=== PATIENT | male | born 1965 | race Two or more races ===

== ENCOUNTER 2024-08-03 12:20 | Emergency (ER) | payer MEDICAID, SELFPAY ==
[2024-08-03 12:45] VITALS: BP 128/85; PULSE 76; RESP 18; TEMP 36.5; O2SAT 96; BMI 26.4
--- NOTE | 2024-08-03 12:45 | XR_ITS ---
Examination: Lumbar spine 3 views Technique one AP lateral coned lateral lower lumbar spine 3 views Exam date and time: July 06, 2024 1210 hours INDICATIONS: Lower back pain and tenderness beginning today. FINDINGS: Lumbar levoscoliosis 10 degrees No lumbar fracture Mild lumbar disc narrowing lower 4 lumbar levels IMPRESSION: Mild lumbar disc narrowing lower 4 lumbar levels
--- NOTE | 2024-08-03 12:49 | EDNOTE_ITS ---
ED Back Injury Pain RME/HPI General Chief Complaint: Back Pain/Injury Stated Complaint: SEVERE INTERMITTENT PAIN L) BACK DOWN L) LEG Time Seen by Provider: 08/03/24 12:30 Source: patient Arrival date/time: 08/03/24 12:20 58-year-old male with no known medical history presents to the emergency room with a chief complaint of lumbar back pain that radiates down his left leg x 1 day Mode of arrival: ambulatory Limitations: no limitations Related Data Allergies Allergy/AdvReac Type Severity Reaction Status Date / Time No Known Allergies Allergy Verified 08/03/24 12:24 Review of Systems Review of Systems Systems Reviewed: All systems reviewed, normal except as documented Constitutional Constitutional: Reports system reviewed and no additional complaints, except as documented, Denies fatigue, Denies fever(s), Denies headache(s) and Denies weakness Eyes Eyes: Reports system reviewed and no additional complaints, except as documented, Denies blurry vision and Denies change in vision ENT Ears, Nose, Mouth, and Throat: Reports system reviewed and no additional complaints, except as documented, Denies otalgia, Denies headache(s), Denies josh al congestion, Denies throat swelling and Denies vertigo Cardiovascular Cardiovascular: Reports system reviewed and no additional complaints, except as documented, Denies chest pain, Denies dyspnea and Denies dyspnea on exertion Respiratory Respiratory: Reports system reviewed and no additional complaints, except as documented, Denies chest congestion, Denies cough, Denies dyspnea, Denies dyspnea on exertion and Denies wheezing Gastrointestinal Gastrointestinal: Reports system reviewed and no additional complaints, except as documented, Denies abdominal pain, Denies cramping, Denies nausea and Denies vomiting Genitourinary Genitourinary: Reports system reviewed and no additional complaints, except as documented, Denies dysuria and Denies hematuria Musculoskeletal Musculoskeletal: Reports system reviewed and no additional complaints, except as documented, Reports arthralgias, Reports back pain and Reports radiating pain into limb Integumentary/Breasts Skin/Breast: Reports system reviewed and no additional complaints, except as documented and Denies wounds Neurologic Neurologic: Reports system reviewed and no additional complaints, except as documented, Denies confusion, Denies headache(s), Denies lack of coordination, Denies vertigo and Denies weakness Psychiatric Psychiatric: Reports system reviewed and no additional complaints, except as documented, Denies anxiety, Denies confusion, Denies depression, Denies paranoia, Denies suicidal ideation and Denies tactile hallucinations Endocrine Endocrine: Reports system reviewed and no additional complaints, except as documented and Denies fatigue Hematologic/Lymphatic Hematologic/Lymphatic: Reports system reviewed and no additional complaints, except as documented and Denies lymphadenopathy Allergic/Immunologic Allergic/Immunologic: Reports system reviewed and no additional complaints, except as documented, Denies throat swelling, Denies urticaria and Denies wheezing ED Exam General Limitations: Present no limitations General appearance: Present alert and in no apparent distress Head Head exam: Present atraumatic Eye Eye exam: Present normal appearance, PERRL and EOMI ENT ENT exam: Present normal exam, normal oropharynx and mucous membranes moist Neck Neck exam: Present normal inspection, full ROM and trachea midline Chest Chest inspection: Present normal inspection and symmetric chest wall rise Respiratory Respiratory exam: Present normal lung sounds bilaterally Cardiovascular Cardiovascular exam: Present regular rate, normal rhythm and normal heart sounds Abdominal Exam Abdominal exam: Present soft and normal bowel sounds Extremities Exam Extremities exam: Present normal inspection and full ROM Back Exam Back exam: Present normal inspection, full ROM, CVA tenderness (L) and vertebral tenderness Neurological Exam Neurological exam: Present alert, oriented X3 and CN II-XII intact Psychiatric Psychiatric exam: Present normal affect and normal mood Skin Skin exam: Present warm, dry, intact and normal color Course Quality Measures none Orders Category Date Time Status XR lumbar spine 2-3V Stat Exams 08/03/24 12:45 Completed Ketorolac Inj [Toradol Inj] Med 08/03/24 12:45 Discontinued 30 mg IM X1 ONE Vital Signs Vital signs: Vital Signs Temperature 97.7 F 08/03/24 12:45 Pulse Rate 76 08/03/24 12:45 Respiratory Rate 18 08/03/24 12:45 Blood Pressure 128/85 H 08/03/24 12:45 Pulse Oximetry (%) 96 08/03/24 12:45 Oxygen Delivery Method Room Air 08/03/24 12:45 O2 saturation 96% within normal limits Back Pain / Injury MDM Narrative MDM Narrative:: 58-year-old male with no known medical history presents to the emergency room with a chief complaint of lumbar back pain that radiates down his left leg x 1 day Patient is hemodynamically stable and in no apparent distress Physical examination shows tenderness and pain with palpation of the lower lumbar spine. The patient also has left-sided sciatic notch tenderness. X-ray of the lumbar spine was completed and shows some mild lumbar disc narrowing in the lower 4 lumbar levels. Patient was given medication with improvement to his symptoms Patient was educated to follow-up with his primary care provider and return to the emergency room for any evidence of worsening signs or symptoms Patient data External records reviewed:: [facility] previous records Clinical information provided by:: patient Social determinants that could affect healthcare access:: none Patient has the following chronic illnesses:: No chronic illness How is presenting disease/condition affected by chronic disease/condition?: no chronic disease Evaluation data The following diagnostics were reviewed and interpreted by me:: lab results and radiology exam(s) Lab and/or radiology exams considered but not ordered:: Labs and radiology exams considered and ordered Interpretation Summary: Lumbar [id number]: Lumbar levoscoliosis 10 degrees No lumbar fracture Mild lumbar disc narrowing lower 4 lumbar levels IMPRESSION: Mild lumbar disc narrowing lower 4 lumbar levels Medications / Prescriptions Medications or Prescriptions considered but not ordered:: Medication given Medication administrations:: Medication Administration History Discontinued Medications Ketorolac Tromethamine (Ketorolac Inj 60 Mg/2 Ml Vial) 30 mg IM X1 ONE Stop: 08/03/24 12:46 Last Admin: 08/03/24 13:41 Dose: 30 mg Documented By: KF Medication given Consultations Consultation(s) initiated? (list below): No Diagnosis Differential diagnosis back pain/injury: lumbar radiculopathy, sciatica, strain of lumbar region and discitis Most likely diagnosis given after review of the tests above:: Strain of lumbar region Admission Indicated Admission indicated?: not indicated Admission Request Was there a request for admission?: No Disposition Plan Disposition Plan: Discharge Discharge Attestation Discharge Attestation: The patient and all family members were given an opportunity to ask questions and understood the discharge instructions. Discharge instructions specifically effects, indications for sooner follow up or return to the emergency department, and the expected course of current diagnosis. Patient condition: Stable Discharge Plan Plan Patient Disposition: HOME (Self Care) Disposition Comment: Stable Prescriptions/Referrals Referrals: Geovanna Lee PA-C [Primary Care Provider] - In 1 week Problem List Clinical Impression: Lumbar disc narrowing, Sciatica Patient/Caregiver Discharge Instructions Education Materials: ED Degenerative Disk Disease, ED Sciatica Additional Instructions: Please follow-up with your primary care provider in the next 24 to 48 hours. For any evidence of worsening signs or symptoms follow-up with your primary care provider as a referral to a biomedical specialist may be indicated. For any evidence of worsening signs or symptoms return to the emergency room immediately Print Language: Wolof Stand Alone Forms: Katherine Award Info., Patient Portal Info Letter PA/[employer] MANAGER Supervising Physician PA/SARINA Supervising Physician: Dr. Nevarez
[2024-08-03] MEDS: KETOROLAC INJ 60 MG/2 ML VIAL 30 MG IM (13:41)
== END 2024-08-03 14:58 | disposition home or self-care (01) ==
PROVIDERS: Emergency Provider Emergency Medicine; PCP Physician Assistant
DX: M48.061 Spinal stenosis, lumbar region without neurogenic claudication (principal); M54.42 Lumbago with sciatica, left side
CPT/HCPCS: 72100; 96372; 99283; J1885

== ENCOUNTER → 2024-08-04 | Outpatient (CLI) | payer MEDICAID, SELFPAY ==
--- NOTE | 2024-08-04 08:00 | XR_ITS ---
Examination: CT chest, without intravenous contrast. Sagittal and coronal 2-D reconstructions. Exam date and time: August 04, 2024 0811 hours Comparison September 12, 2023 INDICATIONS: Smoking history 20 years, 3 mm, 3 mm, 2 mm pulmonary nodules right upper lobe on CT chest September 12, 2023 CTDI:vol (mGy) 8.30 DLP: (mGycm) 329 Technique: Multiple 3.0 mm axial sections of the chest to been obtained. Bone and lung density settings are obtained. Sagittal and coronal 2-D reconstructions have been obtained. Low dose protocols were performed. One or more of the following dose reduction techniques were used; automated exposure control, adjustment of the mA and/or KV according to patient size, use of iterative reconstruction technique. Findings: AP dimension ascending thoracic aorta 3.9 cm No paratracheal tracheobronchial or bronchopulmonary adenopathy COPD with multiple areas of airspace destruction Stable noncalcified pulmonary nodules right upper lobe No new pulmonary nodules. No pneumonia or pulmonary edema No visualized liver or splenic lesion No gallstones No pancreatic or adrenal mass No hydronephrosis Moderate osteopenia IMPRESSION: COPD Stable subcentimeter pulmonary nodules right upper lobe No new pulmonary nodules
== END | disposition home or self-care (01) ==
PROVIDERS: Referring Provider Physician Assistant; Visit Provider Physician Assistant
DX: R91.8 Other nonspecific abnormal finding of lung field (principal); J44.9 Chronic obstructive pulmonary disease, unspecified
CPT/HCPCS: 71250

== ENCOUNTER 2024-10-16 10:00 | Outpatient (RCR) | payer MEDICAID, SELFPAY ==
--- NOTE | 2024-09-23 10:40 | PT.OIERPT ---
PT OP Initial Eval Patient Information Outpatient Physical Therapy Treatment Date: 09/23/24 Visit Reasons: low back pain Medical Diagnosis: M54.50 Treatment Dx #1: Back Pain Start of Care: 09/23/24 Date of Onset: 6 weeks ago Smoking Status Smoking Status: Current every day smoker Cessation Counseling Provided: MAXINE was advised that quitting smoking is the single most important factor to protect the health of themselves and their family. Discussed the benefits of quitting smoking with patient. Encouraged patient to quit smoking and provided Cessation assistance materials and resources. Tobacco Use: Cigarette Years smoked: 20 Are you interested in quitting?: No Would you like additional Smoking Cessation Counseling?: No Initial Assessment Subjective: Pt is a 58 y/o male reports of chronic back pain with left LE numbness down to the knee. Pt's xray showed multi-level mild DDD. No MRI has been done thus far. Pt has limitation with sitting, standing, chores, self care, cooking, cleaning, and performing recreational activities. Pt mentioned ibuprofen (800 mg) is helping the pain. Objective: L/S AROM: all motions are WFL except end range pain into extension Hip PROM: all motions are WFL Hip MMTs: grossly 3/5 Special Test (+) SLR Assessment: Pt demonstrate L/S mobility deficits with pain leading to difficulty with ADLs. 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
--- NOTE | 2024-09-28 12:52 | PTNOTE_ITS ---
PT Outpatient Daily Note OP Daily Note Outpatient Physical Therapy Treatment Date: 09/28/24 Visit Reasons: low back pain Subjective: Pt's back feels a little better. Pt does not have any new concerns to report. Objective: Please see flow chart for list of ther ex performed Assessment: tolerate exercises with minimal pain; cues to correct PPT exercise to improve T rA recruitment Plan: Continue with PT Length of Time (minutes) of Treatment: 30 Minutes Procedure Charges Therapeutic Exercise 30 minutes: Yes
--- NOTE | 2024-10-01 13:12 | PT.ODAYNRPT ---
PT Outpatient Daily Note OP Daily Note Outpatient Physical Therapy Treatment Date: 10/01/24 Visit Reasons: low back pain Subjective: Pt reports back is feeling better today. Objective: Please see flow sheet for ther ex list. Assessment: Added interventions completed with no complaints. Plan: Continue with poC. Length of Time (minutes) of Treatment: 30 Minutes Procedure Charges Therapeutic Exercise 30 minutes: Yes
--- NOTE | 2024-10-06 12:44 | PT.ODAYNRPT ---
PT Outpatient Daily Note OP Daily Note Outpatient Physical Therapy Treatment Date: 10/06/24 Visit Reasons: low back pain Subjective: Pt's back is better. Pt mentioned he's been able to sit and stand longer lately. Objective: Please see flow chart for list of ther ex performed Assessment: tolerate exercises with minimal pain Plan: Continue with PT Length of Time (minutes) of Treatment: 30 Minutes Procedure Charges Therapeutic Exercise 30 minutes: Yes
--- NOTE | 2024-10-08 13:09 | PT.ODAYNRPT ---
PT Outpatient Daily Note OP Daily Note Outpatient Physical Therapy Treatment Date: 10/08/24 Visit Reasons: low back pain Subjective: Pt reports progress with l/s, less pain. Objective: Please see flow sheet for ther ex list. Assessment: Added interventions completed with good tolerance indicating progress. Plan: Assess response to intervention progression. Length of Time (minutes) of Treatment: 30 Minutes Procedure Charges Therapeutic Exercise 30 minutes: Yes
--- NOTE | 2024-10-16 10:16 | PT.ODAYNRPT ---
PT Outpatient Daily Note OP Daily Note Outpatient Physical Therapy Treatment Date: 10/16/24 Visit Reasons: low back pain Subjective: Pt's back is better but lately has been having heel pain. Objective: Please see flow chart for list of ther ex performed Assessment: patient educated heel pain is not related to reported back pain. Pt advised to follow up with PCP for further consultation regarding the heel. Pt is progressing with core exercises with good tolerance Plan: Continue with PT Length of Time (minutes) of Treatment: 30 Minutes Procedure Charges Therapeutic Exercise 30 minutes: Yes
== END 2024-10-17 23:59 | disposition home or self-care (01) ==
LOC: CPTX 10:00
PROVIDERS: PCP Physician Assistant; Referring Provider Physician Assistant; Visit Provider Physician Assistant
DX: M54.50 Low back pain, unspecified (principal); R20.0 Anesthesia of skin; Z71.6 Tobacco abuse counseling; F17.210 Nicotine dependence, cigarettes, uncomplicated
CPT/HCPCS: 97110; 97162

== ENCOUNTER 2024-11-05 09:00 | Outpatient (RCR) | payer MEDICAID, SELFPAY ==
--- NOTE | 2024-10-20 10:42 | PT.ODAYNRPT ---
PT Outpatient Daily Note OP Daily Note Outpatient Physical Therapy Treatment Date: 10/20/24 Visit Reasons: Low back pain Subjective: Pt's back is much better. Pt only notice a little pain in the back with walking. Objective: Please see flow chart for list of ther ex performed Assessment: progressing with nerve flossing exercise able to tolerate in sitting position and c/s flexion. Plan: Continue with PT Length of Time (minutes) of Treatment: 30 Minutes Procedure Charges Therapeutic Exercise 30 minutes: Yes
--- NOTE | 2024-10-22 10:33 | PT.ODAYNRPT ---
PT Outpatient Daily Note OP Daily Note Outpatient Physical Therapy Treatment Date: 10/22/24 Visit Reasons: Low back pain Subjective: Pt's back is good. No new concerns to report. Objective: Please see flow chart for list of ther ex performed Assessment: tolerate exercises with minimal pain Plan: Continue with PT Length of Time (minutes) of Treatment: 30 Minutes Procedure Charges Therapeutic Exercise 30 minutes: Yes
--- NOTE | 2024-10-26 10:50 | PT.ODAYNRPT ---
PT Outpatient Daily Note OP Daily Note Outpatient Physical Therapy Treatment Date: 10/26/24 Visit Reasons: Low back pain Subjective: Pt's back feels much better. Pt does not have new concerns. Pt is happy with results so far. Objective: Please see flow chart for list of ther ex performed Assessment: cues to correct wall nathanael to decrease lumbar lordosis while sliding elbow up on the wall. Plan: Continue with PT Length of Time (minutes) of Treatment: 30 Minutes Procedure Charges Therapeutic Exercise 30 minutes: Yes
--- NOTE | 2024-10-30 10:52 | PT.ODAYNRPT ---
PT Outpatient Daily Note OP Daily Note Outpatient Physical Therapy Treatment Date: 10/30/24 Visit Reasons: Low back pain Subjective: Pt's back is better. Pt does not have any concerns. Objective: Please see flow chart for list of ther ex performed Assessment: tolerate exercises with minimal pain Plan: Continue with PT Length of Time (minutes) of Treatment: 30 Minutes Procedure Charges Therapeutic Exercise 30 minutes: Yes
--- NOTE | 2024-11-02 10:41 | PT.ODAYNRPT ---
PT Outpatient Daily Note OP Daily Note Outpatient Physical Therapy Treatment Date: 11/02/24 Visit Reasons: Low back pain Subjective: Pt's back is good. No new concerns to report. Objective: Please see flow chart for list of ther ex performed Assessment: tolerate exercises with minimal pain Plan: Continue with PT Length of Time (minutes) of Treatment: 30 Minutes Procedure Charges Therapeutic Exercise 30 minutes: Yes
--- NOTE | 2024-11-05 09:26 | PT.ODAYNRPT ---
PT Outpatient Daily Note OP Daily Note Outpatient Physical Therapy Treatment Date: 11/05/24 Visit Reasons: Low back pain Subjective: Pt reports progress with lumbar symptoms, will continue independently with HEP. Objective: Please see flow sheet. Assessment: Pt instructed and educated on updated HEP. Pt has completed 04/30 visits and will be continuing with HEP independently. Plan: DC. Length of Time (minutes) of Treatment: 30 Minutes Procedure Charges Therapeutic Exercise 30 minutes: Yes
--- NOTE | 2024-12-04 09:38 | PT.ODS1RPT ---
PT OP Progress/Discharge Note Date of Service: 12/04/24 Progress Note/DC Note Progress Note/Discharge Note: DC Note Patient Information Visit Reasons: Low back pain Medical Diagnosis: M54.50 Treatment Dx #1: Back Pain Service Continue Service or Discharge: Discharge Discharge Date: 12/04/24 Status Subjective: Pt's back has been feeling much better with less pain down the legs. Pt has been able to sit, stand, perform chores, and ADLs with less limitation. Pt feels comfortable being release from care with HEP for home. Objective: L/S AROM: all motions are WNL Hip PROM: all motions are WNL Hip MMTs: grossly 3+/5 Assessment: Pt demonstrate functional L/S mobility and core strength with less pain allowing him to resume ADLs with less limitation. Pt has completed 12/12 sessions and will no longer benefit from physical therapy. Pt was instructed on HEP last session and educated to continue exercises to maintain overall mobility; thank you for your referrals. Plan: D/C home with HEP and follow up with MD LOPEZ
== END 2024-11-16 23:59 | disposition home or self-care (01) ==
LOC: CPTX 09:00
PROVIDERS: PCP Physician Assistant; Referring Provider Physician Assistant; Visit Provider Physician Assistant
DX: M54.50 Low back pain, unspecified (principal); R20.0 Anesthesia of skin; G89.29 Other chronic pain
CPT/HCPCS: 97110

== ENCOUNTER → 2024-12-24 | Outpatient (CLI) | payer MEDICAID, SELFPAY ==
--- NOTE | 2024-12-24 10:51 | XR_ITS ---
Examination: Foot, right, 3 views Technique: AP, oblique, lateral views foot, 3 views Date and time of exam: December 24, 2024 1139 hours INDICATIONS: Right-sided foot pain today FINDINGS: Mild bunion deformity. 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
== END | disposition home or self-care (01) ==
PROVIDERS: PCP Physician Assistant; Referring Provider Physician Assistant; Visit Provider Physician Assistant
DX: M21.611 Bunion of right foot (principal); M19.071 Primary osteoarthritis, right ankle and foot
CPT/HCPCS: 73630